=== PATIENT | female | born 1990 | race Asian ===

== ENCOUNTER → 2016-11-18 | Outpatient (CLI) | payer OTHER ==
[~2016-11-18] MED LIST: PRENTAB26 PO
[2016-11-18 16:29] LABS: URINE APPEARANCE CLOUDY (CLEAR); URINE BILIRUBIN NEG (NEG); URINE COLOR YELLOW; URINE EPITHELIAL CELL AUTO >30 /lpf (0-5); URINE NITRITE NEG (NEG); URINE SPECIFIC GRAVITY 1.007 (1.000-1.030); UROBILINOGEN NEG (NEG)
[2016-11-18 16:33] LABS: MANUAL MICROSCOPIC REQUIRED? NO; REVIEW REQ? NO
== END | disposition home or self-care (01) ==
LOC: EDBD → C.LABSPEC 16:03
PROVIDERS: ATTEND Obstetrics & Gynecology
DX: Z34.90 Encounter for supervision of normal pregnancy, unspecified, unspecified trimester (principal)

== ENCOUNTER → 2016-11-22 | Outpatient (CLI) | payer OTHER ==
[2016-11-22 16:18] LABS: BASO % 0.2 %; BASO ABS # 0.02 K/uL (0-0.2); COMPLETE YES; EOS % 1.5 %; HEMATOCRIT 36.8 % (37-47); IG% 0.2 %; LYMPH % 23.9 %; LYMPH ABS # 2.35 K/uL (1.2-3.4); MEAN CORPUSCULAR HEMOGLOBIN 31.3 pg (25-34); MEAN CORPUSCULAR HGB CONC 36.4 g/dl (32-36); MEAN PLATELET VOLUME 11.5 fL (7.4-10.4); MONO % 6.8 %; NEUT % 67.4 %; PLATELET COUNT 185 K/uL (130-400); RED BLOOD COUNT 4.28 M/uL (4.2-5.4); WHITE BLOOD COUNT 9.82 K/uL (4.8-10.8)
== END | disposition home or self-care (01) ==
LOC: EDBD → C.LAB1850 15:15
PROVIDERS: ATTEND Obstetrics & Gynecology
DX: Z34.90 Encounter for supervision of normal pregnancy, unspecified, unspecified trimester (principal)

== ENCOUNTER → 2016-11-22 | Outpatient (CLI) | payer OTHER | END | disposition home or self-care (01) | LOC: EDBD → C.PAPS 11:52 | PROVIDERS: ATTEND Obstetrics & Gynecology | DX: Z34.90 Encounter for supervision of normal pregnancy, unspecified, unspecified trimester (principal) ==

== ENCOUNTER → 2016-11-22 | Outpatient (CLI) | payer OTHER ==
[2016-11-26 09:32] LABS: CHLAMYDIA TRACH RNA*** NOT DETECTED (NOT DETECTED); GC (NEIS GONORRHOEAE)RNA** NOT DETECTED (NOT DETECTED)
== END | disposition home or self-care (01) ==
LOC: EDBD → C.LABSPEC 17:36 → EDBD 17:36
PROVIDERS: ATTEND Obstetrics & Gynecology
DX: Z34.90 Encounter for supervision of normal pregnancy, unspecified, unspecified trimester (principal)

== ENCOUNTER → 2017-01-07 | Outpatient (CLI) | payer OTHER ==
[2017-01-07 18:55] LABS: GTGD 50 Grams
[2017-01-09 14:13] LABS: AFP CONCENTRATION 45.9 NG/ML; AFPTS GESTATIONAL AGE 16.3 WEEKS; AFPTS INSULIN DEP DIABETIC? NO; AFPTS MATERNAL WT 110 LBS; ALPHA-FETOPROTEIN RACE OTHER=O; ESTRIOL MULTIPLE OF MEDIAN 1.09; HISTORY OF NTD NO; INHIBIN A 232 PG/ML; INHIBIN A MOM 1.16; REPEAT SAMPLE? NO; hCG MULTIPLE OF MEDIAN 0.68
== END | disposition home or self-care (01) ==
LOC: C.LAB1850 15:57
PROVIDERS: ATTEND Obstetrics & Gynecology
DX: Z34.90 Encounter for supervision of normal pregnancy, unspecified, unspecified trimester (principal)

== ENCOUNTER → 2017-04-03 | Outpatient (CLI) | payer OTHER ==
[2017-04-03 17:20] LABS: HEMATOCRIT 34.7 % (37-47)
[2017-04-03 19:58] LABS: GTGD 50 Grams
== END | disposition home or self-care (01) ==
LOC: C.LAB1850 15:52
PROVIDERS: ATTEND Obstetrics & Gynecology
DX: Z34.82 Encounter for supervision of other normal pregnancy, second trimester (principal)

== ENCOUNTER → 2017-04-03 | Outpatient (CLI) | payer OTHER ==
[2017-04-03 18:44] LABS: URINE APPEARANCE CLEAR (CLEAR); URINE BILIRUBIN NEG (NEG); URINE COLOR YELLOW; URINE EPITHELIAL CELL AUTO 0-5 /lpf (0-5); URINE NITRITE NEG (NEG); URINE SPECIFIC GRAVITY 1.007 (1.000-1.030); UROBILINOGEN NEG (NEG)
[2017-04-03 18:50] LABS: MANUAL MICROSCOPIC REQUIRED? NO; REVIEW REQ? NO
== END | disposition home or self-care (01) ==
LOC: C.LABSPEC 17:45
PROVIDERS: ATTEND Obstetrics & Gynecology
DX: Z34.82 Encounter for supervision of other normal pregnancy, second trimester (principal)

== ENCOUNTER → 2017-05-28 | Outpatient (CLI) | payer OTHER | END | disposition home or self-care (01) | LOC: C.LABSPEC 15:42 | PROVIDERS: ATTEND Obstetrics & Gynecology | DX: Z34.03 Encounter for supervision of normal first pregnancy, third trimester (principal) ==

== ENCOUNTER 2017-06-09 15:05 | Inpatient (IN) | payer OTHER ==
[~2017-06-09] VITALS: Ht 157.5 cm; Wt 61.8 kg
[2017-06-09] MEDS ORDERED: PRENTAB26 PO (16:21)
[2017-06-09 16:22] VITALS: Ht 157.5 cm; Wt 61.8 kg
[2017-06-09] MEDS ORDERED: LACTATED RINGER'S 1000ML 1,000 ML IV SCH ×2 (19:45)
[2017-06-09] MEDS ORDERED: NURSING VERBAL MED ORDER ONE (19:45)
[2017-06-09] MEDS ORDERED: FENTANYL 2MCG/ML ROPIV 1.25MG/ML 100ML BAG EPI ONE (20:17)
[2017-06-09] MEDS ORDERED: EpHEDrine SULFATE INJ 50 MG/ML AMP ONE (20:17)
[2017-06-09] MEDS ORDERED: BUPIVACAINE 0.25% 30 ML VIAL ONE (20:17)
[2017-06-09] MEDS ORDERED: FENTANYL CITRATE INJ 50 MCG/1 ML 2 ML VIAL ONE (20:18)
[2017-06-09 20:20] LABS: HEMATOCRIT 39.7 % (37-47); MEAN CORPUSCULAR HEMOGLOBIN 33.3 pg (25-34); MEAN PLATELET VOLUME 11.3 fL (7.4-10.4); PLATELET COUNT 133 K/uL (130-400); RED BLOOD COUNT 4.27 M/uL (4.2-5.4); WHITE BLOOD COUNT 12.75 K/uL (4.8-10.8)
[2017-06-09 20:29] LABS: MEAN CORPUSCULAR HGB CONC 35.8 g/dl (32-36)
[2017-06-09] MEDS ORDERED: LACTATED RINGER'S 1000ML 500 ML IV PRN (21:52)
[2017-06-09] MEDS ORDERED: NALOXONE HCL INJ 1 MG in SODIUM CHLORIDE 0.9% 1000ML 1,000 ML IV PRN (21:52)
[2017-06-09] MEDS ORDERED: EpHEDrine SULFATE INJ 50 MG/ML AMP IV PRN (22:00)
[2017-06-09] MEDS ORDERED: FENTANYL 2MCG/ML ROPIV 1.25MG/ML 100ML BAG EPI PRN (22:00)
[2017-06-09] MEDS ORDERED: PROMETHAZINE HCL INJ 6.25 MG in SODIUM CHLORIDE 0.9% 50ML 50 ML IV PRN (22:00)
[2017-06-09] MEDS ORDERED: NALOXONE HCL INJ 0.4 MG/1 ML VIAL/CARP IV PRN (22:00)
[2017-06-09] MEDS ORDERED: DiphenhydrAMINE HCL 50 MG/ML VIAL IV PRN (22:00)
[2017-06-09] MEDS ORDERED: NALBUPHINE HCL INJ 10 MG/ML AMP IV PRN (22:00)
[2017-06-09] MEDS ORDERED: ONDANSETRON INJ 2 MG/ML 2 ML VIAL IV PRN (22:00)
[2017-06-10] MEDS ORDERED: OXYTOCIN 30 UNITS/500ML NSS IV ONE (01:24)
--- NOTE | 2017-06-10 02:17 | Anesthesia Procedure Note ---
Anesthesia Epidural Removal Nt Date & Time Jun 10, 2017 at 02:17 Vital Signs Pain Intensity: 0.0 Notes Mental Status: alert / awake / arousable, participated in evaluation Nausea / Vomiting: adequately controlled Pain: adequately controlled Airway Patency, RR, SpO2: stable & adequate BP & HR: stable & adequate Hydration State: stable & adequate Neuraxial Anesthesia: was administered Anesthetic Complications: no major complications apparent, pt satisfied with anesthetic care Epidural: removed without complications, with tip intact
[2017-06-10] MEDS ORDERED: DIPHTHERIA/TETANUS/PERTUSSIS 0.5 ML SYR/VIAL IM. ONE (02:30)
[2017-06-10] MEDS ORDERED: SUPERCREAM 0.870 % 15GM JAR EXT PRN (02:30)
[2017-06-10] MEDS ORDERED: LANOLIN OINT EXT PRN ×2 (02:30)
[2017-06-10] MEDS ORDERED: BENZOCAINE 20% AER SPR 82.5 GM CAN EXT PRN (02:30)
[2017-06-10] MEDS ORDERED: OXYTOCIN INJ 20 UNITS in LACTATED RINGER'S 1000ML 1,000 ML IV SCH (02:30)
[2017-06-10] MEDS ORDERED: OXYTOCIN 30 UNITS/500ML NSS IV PRN (02:30)
[2017-06-10] MEDS ORDERED: ACETAMINOPHEN 325 MG TAB PO PRN (02:30)
[2017-06-10] MEDS ORDERED: ACETAMINOPHEN/CODEINE 300/30MG TAB PO PRN ×2 (02:30)
[2017-06-10] MEDS ORDERED: HYDROCORTISONE ACETATE 25 MG SUPP PR PRN (02:30)
--- NOTE | 2017-06-10 02:41 | Vaginal Delivery Summary ---
Vaginal Delivery Summary 27-year-old at 38 weeks ega who presented in latent phase of labor that advanced to active phase of labor. Her membranes were ruptured for clear fluid. She advanced rapidly in labor. She received an epidural for anesthesia. During the course of her progression to 10 cm the baseline was 150s with accelerations, category 1. At approximately 1 AM today, with the onset of pushing, an abrupt change in heart tones was noted with tachycardia that persisted until the time of delivery. I was attending another delivery and then entered the room to evaluate the patient and fetus. The patient had been given IV fluid boluses and her bedside temperature was less than 100.4. At this point the fetus was however maternal effort was inconsistent. The patient was readied for delivery and using a Kiwi vacuum over one contraction with one pull and no pop offs, after informed consent had been obtained, the cephalic was delivered. After delivery of the cephalic. the anterior shoulder was delivered with further effective maternal expulsive efforts. At this point pushing was paused and the mouth and nose were bulb suctioned. With further maternal expulsive efforts the remainder of the body was delivered. was vigorous and crying at . The cord was clamped approximately 30 seconds of life. was placed in the maternal abdomen. The cord was doubly clamped and then cut. The placenta was delivered spontaneously and intact, three-vessel cord. A second-degree perineal laceration was repaired in usual fashion using 3-0 Vicryl. Cervix and sulci intact. The bladder was drained under sterile conditions for approximately 100 cc of urine. Hemostasis was achieved with dilute Pitocin and bimanual uterine massage. EBL 400 cc. Cord blood and cord gases were obtained. Mother and baby stable in recovery.
[2017-06-10 05:30] VITALS: BP 106/68; PULSE 80; TEMP 36.8
[2017-06-10 07:30] VITALS: BP 100/63; PULSE 79; TEMP 36.8
[2017-06-10] MEDS: DOCUSATE SODIUM 100 MG CAP PO SCH ×2 (07:40→19:57)
[2017-06-10] MEDS: IBUPROFEN 600 MG TAB PO PRN ×2 (07:41→22:01)
[2017-06-10 12:05] VITALS: BP 104/68; PULSE 71; TEMP 36.8
[2017-06-10 15:30] VITALS: BP 101/69; PULSE 78; TEMP 36.6
[2017-06-10 19:30] VITALS: BP 100/68; PULSE 92; TEMP 36.7
[2017-06-11 01:00] VITALS: BP 117/70; PULSE 72; TEMP 36.7
--- NOTE | 2017-06-11 07:06 | Progress Note ---
Subjective Jun 11, 2017. Subjective conversation w/ patient, physical exam, chart review, lab review Ambulation: ambulating normally Voiding: no voiding problems Passing Gas: Yes Diet Tolerance: Regular Diet Lochia: Moderate Feeding Type: Breast Feeding Pain: controlled Review of Systems Respiratory: No shortness of breath Cardiac: No chest pain Abdomen: No nausea, No vomiting Female : No dysuria Objective Vital Signs Date Time Temp Pulse Resp B/P (MAP) Pulse Ox O2 Delivery O2 Flow Rate FiO2 06/11/17 01:00 Room Air 06/11/17 01:00 36.7 72 18 117/70 (86) Room Air 06/10/17 19:30 36.7 92 20 100/68 (79) Room Air 06/10/17 15:30 Room Air 06/10/17 15:30 36.6 78 20 101/69 (80) Room Air 06/10/17 12:05 36.8 71 20 104/68 (80) Room Air 06/10/17 07:30 Room Air 06/10/17 07:30 36.8 79 20 100/63 (75) Room Air Physical Exam General Appearance: WELL-APPEARING, WD/WN, NO APPARENT DISTRESS Respiratory/Chest: lungs clear Cardiovascular: regular rate, rhythm Abdomen: normal bowel sounds, soft Fundus: Firm, Tender (appropriately tender), Relation to Umbilicus (at level of U) Extremities: no calf tenderness Laboratory Results Last 24 Hours Test 06/11/17 06:45 Hemoglobin 13.5 g/dL Hematocrit 38.0 % Assessment and Plan Post- Day#: 1 Continue Routine Care: - Vital Signs reviewed and WNL. - Hemoglobin Reviewed. 13.5 (today). - Blood Type: O+, GBS-, Rubella Immune. - Pt is doing well clinically. - Encourage Ambulation, Monitor and Control pain with Motrin PRN, Resume regular diet, Monitor Lochia - Encourage Breast Feeding. MONICA SALAS PGY1 FM RESIDENT Resident Physician Supervision Note: I interviewed and examined the patient. Discussed with Dr. Salas and agree with findings and plan as documented in the note. Any exceptions or clarifications are listed here: Doing well. Struggling with breast feeding as nipples very sore. Will continue to work on it prior to d/c. Plan d/c later today. Instructions given. Documented By: Dinah Kohler Resident Tracking Resident Involvement: Resident Care Provided Care Provided: OB Delivery
--- NOTE | 2017-06-11 07:07 | Discharge Instructions ---
Discharge Instructions Date of Service Jun 11, 2017. Admission Reason for Admission: R/O Labor Discharge Discharge Diagnosis / Problem: DELIVERY Discharge Goals Goal(s): Routine recovery after delivery Medications Continue Dispensed Medications: supercream, dermaplast, tucks, lansinoh Activity Recommendations Activity Limitations: per Instructions/Follow-up section . Instructions / Follow-Up Instructions / Follow-Up ACTIVITY RECOMMENDATIONS: * Gradual return to full activity over the next 2-3 weeks. * No lifting - nothing heavier than baby over the next 2-3 weeks. * Do not engage in vigorous exercise, sexual activity or sports until cleared by your physician. * Do not drive or operate any motorized equipment until cleared by your physician. * You may shower/bathe daily. MEDICATIONS: For discomfort or pain, you may use Acetaminophen (Tylenol), Ibuprofen (Advil), or Naproxen (Aleve) following the package directions. For constipation you may use Colace following the package directions. BREAST CARE: If you are not breast feeding: * Wear a supportive bra 24 hours a day for one to two weeks. * Avoid stimulating your breasts and nipples as much as possible during the first few weeks after delivery. * When taking a shower, have the warm water hit your back, not breasts. * When your breasts feel full, apply ice packs. Usually three to four times a day helps ease the discomfort. * Take a mild pain medication (Tylenol / Motrin) when you are uncomfortable. If breast feeding: * Use breast milk to lubricate nipples. Lansinoh cream may be used for sore nipples. You do not need to remove cream prior to breast feeding. If using a different brand of cream, check the label for directions regarding removal of cream prior to nursing. * Wear a supportive bra. * If having problems with breasts or breast feeding, call a small business consultant or your health care provider. EPISIOTOMY CARE: After delivery, if you have an episiotomy (stitches), the following steps will ease discomfort and aid healing. * For the first 24 hours after delivery, place ice packs next to your episiotomy to help reduce swelling. * After the first 24 hour-period, sitz baths, either portable or in the tub, are suggested. A shower with a shower arm sprayed over the episiotomy may be comforting. * Cheri care should be done after each voiding and bowel movement. Squirt warm water from a plastic bottle over the perineum (region of the body between the anus and urinary opening) and pat dry. * Use Dermoplast to ease discomfort. Shake container. [place] directly over the episiotomy. Place a Tucks on a clean sanitary pad next to your episiotomy. SPECIAL CARE INSTRUCTIONS: When you are discharged from the hospital, it is important for you to follow the instructions listed below: * During the first week at home, you should be able to care for yourself and your baby. In addition, the usual light household activities are encouraged. * Limit your activities to the way you feel. Do not try to clean the house or move furniture. Be sensible. * If you actively engage in sports and have done so up until the time of your delivery, you may resume these activities as soon as you feel able. This may take up to one month or even longer. Use good judgment. * Continue to take your vitamins for at least six weeks after the of your baby. * Your diet need not be limited unless you were on a special diet before your delivery. Breast-feeding mothers need around 2500 calories per day and at least 64-80 ounces of fluid per day (8 to 10 glasses). * You should eat foods from the four major food groups. Crash diets or fad diets are to be avoided. Eating lean meats, fresh fruits and vegetables, low-fat dairy products, high fiber foods and a regular exercise program, will help you get back to your pre- weight without putting your health at risk. * Constipation is sometimes a problem after delivery. Take a mild laxative as needed. If breast feeding, Milk of Magnesia is acceptable to use. You may use a suppository or Fleets enema if no episiotomy. * A daily shower or tub bath is suggested. Be sure to thoroughly and gently dry the perineum. * A bloody vaginal discharge will usually continue until around four weeks post . A small amount of bleeding may continue for as long as six weeks. Vaginal discharge changes from the bright red bleeding after delivery to pink then brownish and finally yellowish-pink before becoming white and disappearing. * Bleeding may increase with activity. Your first period may come in 4-8 weeks. If you are breast feeding, your period may be delayed even longer. * [place] (sex) can begin whenever both you and your partner feel comfortable and do not have any form of genital infection. It is recommended that you wait at least six weeks for internal and external healing to occur. If you have questions, please talk to your health care practitioner. A condom should be used to prevent infection and . * Foreplay, gentle intercourse and lubrication is very important the first several times to prevent pain. A water-based lubricant such as K-Y jelly or Astroglide may be used. * If you have RH negative blood and your baby is RH positive, you will receive RHOGAM by injection prior to discharge. The nurse will give you a card to keep with you that has the date and place that you received RHOGAM after delivery. * During your care, you had a Rubella screen done to check for the presence of rubella antibodies in your blood. If your test was negative, you will receive a Rubella vaccine prior to discharge. This vaccine may cause a fever, soreness at the injection site and flu-like symptoms. If these symptoms persist, notify your health care practitioner. is not advised for one month after a Rubella vaccine. * Verbalizes understanding of car seat law as reviewed with patient nursing. * Car Seat hand-out given and reviewed with patient by nursing. * Shaken baby information reviewed with patient by nursing. Call you doctor if: * Heavy bleeding (saturating several pads an hour) or passing clots the size of your fist. * A fever >101 degrees F (38.3 degrees C) on two occasions four hours apart and /or chills. * Unusual pain in the pelvic or vaginal areas. * "Baby Blues" lasting longer than two weeks. If you have any questions or concerns, call your health care practitioner at . FOLLOW UP VISIT: * Please call the office at to schedule a 6 week examination. It is important you keep this appointment. It is important for you to make arrangements for either yearly or twice yearly check-ups thereafter. Current Hospital Diet Patient's current hospital diet: Regular OB Diet Discharge Diet Recommended Diet: Regular Diet Pending Studies Studies pending at discharge: no Medical Emergencies . Who to Call and When: Medical Emergencies: If at any time you feel your situation is an emergency, please call 911 immediately. . Non-Emergent Contact Non-Emergency issues call your: Primary Care Provider . . "Provider Documentation" section prepared by Ana M Salas. . VTE Core Measure Inpt VTE Proph given/why not?: Treatment not indicated
[2017-06-11 07:20] VITALS: BP 111/65; PULSE 68; TEMP 36.4; O2SAT 97
[2017-06-11] MEDS: DOCUSATE SODIUM 100 MG CAP PO SCH ×2 (08:54→19:43)
[2017-06-11 15:30] VITALS: BP 115/83; PULSE 98; TEMP 36.4
[2017-06-11 23:40] VITALS: BP 112/76; PULSE 77; TEMP 36.7; O2SAT 98
--- NOTE | 2017-06-12 07:26 | Progress Note ---
Subjective Jun 12, 2017. Subjective conversation w/ patient, physical exam, chart review, lab review Ambulation: ambulating normally Voiding: no voiding problems Passing Gas: Yes Diet Tolerance: Regular Diet Lochia: Moderate Feeding Type: Breast Feeding Pain: CONTROLLED Review of Systems Respiratory: No shortness of breath Cardiac: No chest pain Abdomen: No nausea, No vomiting Female : No dysuria Objective Vital Signs Date Time Temp Pulse Resp B/P (MAP) Pulse Ox O2 Delivery O2 Flow Rate FiO2 06/11/17 23:40 36.7 77 18 112/76 (88) 98 Room Air 06/11/17 23:40 98 Room Air 06/11/17 15:30 36.4 98 20 115/83 (94) Room Air 06/11/17 15:30 Room Air 06/11/17 08:30 Room Air Physical Exam General Appearance: WELL-APPEARING, WD/WN, NO APPARENT DISTRESS Respiratory/Chest: lungs clear Cardiovascular: regular rate, rhythm Abdomen: normal bowel sounds, soft Fundus: Firm, Non-Tender, Relation to Umbilicus (3 BELOW u) Extremities: no calf tenderness Assessment and Plan Post- Day#: 2 Continue Routine Care: - Vital Signs reviewed and WNL. - Blood Type: o+, GBS-, Rubella Immune. - Pt is doing well clinically. - Encourage Ambulation, Monitor and Control pain with Motrin PRN, Resume regular diet, Monitor Lochia - Encourage Breast Feeding. - Pt counselled on discharge instructions MONICA MOORE PGY1 FM RESIDENT Resident Physician Supervision Note: I interviewed and examined the patient. Discussed with Dr. moore and agree with findings and plan as documented in the note. Any exceptions or clarifications are listed here: [None] Documented By: Jef Arambula Resident Tracking Resident Involvement: Resident Care Provided Care Provided: OB Delivery
[2017-06-12 08:00] VITALS: BP 110/76; PULSE 68; TEMP 36.5
[2017-06-12] MEDS: DOCUSATE SODIUM 100 MG CAP PO SCH (08:52)
--- NOTE | 2017-06-18 04:56 | DISCHARGE SUMMARY ---
ADMISSION DIAGNOSES: 1. Term intrauterine . 2. Active labor. 3. tachycardia. 4. Poor maternal expulsive efforts. DISCHARGE DIAGNOSES: Same. PROCEDURES: 1. Outlet vacuum-assisted vaginal delivery. 2. Repair of second degree perineal laceration. BRIEF HISTORY AND HOSPITAL COURSE: A 27-year-old 2, para 0 at 38 weeks estimated gestational age who presented in the latent phase of labor that advanced to the active phase of labor. Her membranes were ruptured for clear fluid. She advanced rapidly in labor and received an epidural for anesthesia. During the course of her progression to complete dilation an abrupt change in heart tones was noted with significant tachycardia that persisted until the time of her delivery. Her temperature curve had been normal. The fetus was ; however, there was inconsistent maternal expulsive efforts and the patient was ready for delivery. She was counseled about the use of vacuum and a Kiwi vacuum was applied and over 1 contraction with 1 pull and no pop offs the cephalic was delivered. Please see the delivery summary for further details. Her course was otherwise uncomplicated. She was tolerating a regular diet, voiding spontaneously and ambulating without difficulty and on day #2 was stable for discharge to home. She was given appropriate discharge instructions. Her hemoglobin was 13.5. MTDD
== END 2017-06-12 14:00 | disposition home or self-care (01) | DRG 775 ==
LOC: C.OPB 15:05 → C.LD 15:05 → C.OPB 19:39 → C.LD 19:39 → C.OBG 06-10 05:19 → EDSTATUS 06-22 15:06
PROVIDERS: ADMIT Obstetrics & Gynecology; ATTEND Obstetrics & Gynecology
PROC: 0KQM0ZZ Repair Perineum Muscle, Open Approach (ICD-10-PCS; principal; 2017-06-12)
PROC: 10D07Z6 Extraction of Products of Conception, Vacuum, Via Natural or Artificial Opening (ICD-10-PCS; principal; 2017-06-12)
DX: O76 Abnormality in fetal heart rate and rhythm complicating labor and delivery (principal); Z37.0 Single live birth; O70.1 Second degree perineal laceration during delivery; Z3A.38 38 weeks gestation of pregnancy